=== PATIENT | female | born 1980 | race Caucasian/White ===

== ENCOUNTER → 2019-01-21 | Outpatient (CLI) | payer OTHER ==
--- NOTE | 2019-01-21 08:41 | CT ---
EXAMINATION TYPE: CT brain wo/w con DATE OF EXAM: 01/21/2019 COMPARISON: NONE HISTORY: Migraine with aura CT DLP: 1870.30 mGycm Automated Exposure Control for Dose Reduction was Utilized. TECHNIQUE: CT scan of the head is performed with IV contrast.,CT scan of the head is performed withou t and with without and with IV Contrast, patient injected with 100 ml mL of Isovue 300. FINDINGS: Noncontrast images show no acute intracranial hemorrhage or midline shift. The ventricles and sulci are within normal limits in size. No suspicious extra-axial fluid collection. Postcontrast images show no suspicious enhancing intraparenchymal mass. The globes are intact and the visualized sinuses are clear. IMPRESSION: Unremarkable contrast enhanced head CT exam. No evidence of acute intracranial hemorrhage , midline shift, or abnormal intracranial enhancement. If there is concern for white matter change an d/or demyelinating disease MRI would be recommended.
== END | disposition home or self-care (01) ==
LOC: RADCTMAIN 07:26
PROVIDERS: ATTEND Family Medicine
DX: G43.119 Migraine with aura, intractable, without status migrainosus (principal)
CPT/HCPCS: 70470; Q9967

== ENCOUNTER → 2019-02-17 | Outpatient (CLI) | payer OTHER ==
--- NOTE | 2019-02-18 07:54 | US ---
EXAMINATION TYPE: US thyroid st tissue head/neck DATE OF EXAM: 02/17/2019 COMPARISON: NONE CLINICAL HISTORY: R22.1 Lump on neck. Neck lump GLAND SIZE: Right Lobe: 5.2 x 1.8 x 2.1 cm Overall Parenchyma: heterogenous Left Lobe: 5.4 x 1.5 x 2.1 cm Overall Parenchyma: heterogeneous Isthmus Thickness: 0.26 cm NODULES RIGHT: # of nodules measured on right: 0 LEFT: # of nodules measured on left: 1 1. 0.4 X 0.3 x 0.3 cm hypoechoic mixed nodule at the mid pole with well-defined margins . This nod ule is as tall as it is wide and shows no intranodular vascularity. Prior size: No prior ISTHMUS: # of nodules measured in the isthmus: 0 Bilateral neck scanned, no evidence of lymphadenopathy. IMPRESSION: Solitary 4 mm left thyroid nodule with questionable colloid internally that would classify this as a benign colloid cyst. Follow-up could be performed at 12 months for confirmation and to assess for int erval growth.
== END | disposition home or self-care (01) ==
LOC: RADUSWWP 16:22
PROVIDERS: ATTEND Family Medicine
DX: E04.1 Nontoxic single thyroid nodule (principal)
CPT/HCPCS: 76536

== ENCOUNTER → 2023-01-15 | Outpatient (CLI) | payer OTHER ==
--- NOTE | 2023-01-16 08:33 | XR ---
EXAMINATION TYPE: XR cervical spine comp DATE OF EXAM: 01/15/2023 COMPARISON: NONE HISTORY: Pain TECHNIQUE: Four views are submitted. FINDINGS: The odontoid is intact. There are no compression deformities. The prevertebral soft tissue structur es are within normal limits. There is mild degenerative disc disease C5-6 and C6-C7. IMPRESSION: 1. Mild degenerative disc disease C5-6 and C6-C7.
--- NOTE | 2023-01-16 08:34 | XR ---
EXAM TYPE: LUMBAR SPINE X RAY SERIES COMPARISON: NONE HISTORY: Pain TECHNIQUE: 4 views are submitted. FINDINGS: Alignment is anatomic. The pedicles are intact. The transverse processes are intact. There is mild anterolisthesis L4 on L5. Vertebral body height and disc interspaces fairly well maintained. IMPRESSION: 1. Grade 1 minimal anterolisthesis L4 on L5 with no definite spondylolysis. Consider follow-up MRI.
--- NOTE | 2023-01-16 08:35 | XR ---
EXAMINATION TYPE: XR thoracic spine complete DATE OF EXAM: 01/15/2023 COMPARISON: NONE HISTORY: Pain TECHNIQUE: 3 views submitted FINDINGS: Alignment is anatomic. There is no compression deformities. Mild hypertrophic spurring in the mid an d lower thoracic spine with mild degenerative disc disease. IMPRESSION: 1. Mild multilevel degenerative disc disease.
== END | disposition home or self-care (01) ==
LOC: RADXRMAIN 14:57
PROVIDERS: ATTEND Family Medicine
DX: M50.323 Other cervical disc degeneration at C6-C7 level (principal); M43.16 Spondylolisthesis, lumbar region; M51.34 Other intervertebral disc degeneration, thoracic region
CPT/HCPCS: 72050; 72072; 72110